=== PATIENT | female | born 1985 | race Hispanic/Latino ===

== ENCOUNTER 2022-04-14 02:25 | Emergency (ER) | payer OTHER ==
[~2022-04-14] VITALS: Ht 162.6 cm; Wt 145.1 kg
[2022-04-14 02:42] LABS: BASOPHILS % (AUTO) 0.5 % (0.0-5.0); EOSINOPHILS % (AUTO) 2.9 % (0.0-8.0); HEMATOCRIT 40.9 % (36-48); LYMPHOCYTES % (AUTO) 34.6 % (21.0-51.0); MEAN CORPUSCULAR HEMOGLOBIN 27.1 pg (27.0-33.0); MONOCYTES % (AUTO) 7.4 % (3.0-13.0); NEUTROPHILS % (AUTO) 54.3 % (40.0-77.0); PLATELET COUNT (AUTO) 309 K/uL (130-400); RED BLOOD CELL COUNT(AUTO) 4.99 MIL/uL (4.00-5.50); RED CELL DISTRIBUTION WIDTH 13.4 % (11.0-15.5)
[2022-04-14 02:59] LABS: ALBUMIN 3.3 g/dL (3.5-5.0); CREATININE 0.8 mg/dL (0.5-1.5); TOTAL PROTEIN, SERUM 7.1 g/dL (6.0-8.3)
[2022-04-14] MEDS ORDERED: KETOROLAC 15MG/ML VIAL (15MG/ML) IV ONE (03:00)
[2022-04-14 03:02] LABS: INR 0.94 (0.85-1.15); PROTHROMBIN TIME 10.3 SEC (9.6-11.6)
[2022-04-14 03:04] LABS: PARTIAL THROMBOPLASTIN TIME 30.8 SEC (26.3-35.5)
[2022-04-14 03:05] LABS: POTASSIUM 2.8 mmol/L (3.5-5.1)
[2022-04-14] MEDS ORDERED: IBUP-2077 PO (03:17)
[2022-04-14] MEDS ORDERED: POTA-79 PO (03:21)
[2022-04-14 03:26] LABS: APPEARANCE,URINE CLEAR (CLEAR); BILIRUBIN,URINE NEGATIVE (NEGATIVE); COLOR,URINE YELLOW (YELLOW); GLUCOSE, URINE (UA) NEGATIVE (NEGATIVE); KETONES,URINE NEGATIVE (NEGATIVE); LEUKOCYTE ESTERASE ,URINE NEGATIVE (NEGATIVE); NITRATE,URINE NEGATIVE (NEGATIVE); OCCULT BLOOD,URINE NEGATIVE (NEGATIVE); PH,URINE 6.5 (5.0-8.0); PROTEIN,URINE NEGATIVE (NEGATIVE); UROBILINOGEN,URINE 0.2 mg/dL (0.2-1.0)
[2022-04-14 03:30] LABS: HCG,QUALITATIVE URINE NEGATIVE (NEGATIVE)
[2022-04-14] MEDS ORDERED: POTASSIUM CHLORIDE 10% ELIXIR 20 MEQ/15 ML UDCUP PO ONE (03:30)
[2022-04-14 04:09] VITALS: BP 122/72
== END 2022-04-14 04:26 | disposition home or self-care (01) ==
LOC: EDH 02:25
DX: E87.6 Hypokalemia (principal); R07.89 Other chest pain; Z88.6 Allergy status to analgesic agent; Z79.1 Long term (current) use of non-steroidal anti-inflammatories (NSAID); Z79.899 Other long term (current) drug therapy
CPT/HCPCS: 99285; 96374; 71045; 82550; 84484 ×2; 80053; 85025; 85610; 85730; 81003; 81025; 36415; 93005; J1885

== ENCOUNTER 2022-04-16 09:09 | Emergency (ER) | payer OTHER ==
[~2022-04-16] VITALS: Ht 152.4 cm; Wt 117.9 kg
[~2022-04-16 09:09] MED LIST: IBUP-2077 PO; POTA-79 PO
[2022-04-16 09:33] LABS: BASOPHILS % (AUTO) 0.6 % (0.0-5.0); EOSINOPHILS % (AUTO) 2.1 % (0.0-8.0); HEMATOCRIT 41.5 % (36-48); LYMPHOCYTES % (AUTO) 30.3 % (21.0-51.0); MEAN CORPUSCULAR HEMOGLOBIN 26.5 pg (27.0-33.0); MEAN CORPUSCULAR HGB CONC 32.5 g/dL (32.0-36.0); MEAN CORPUSCULAR VOLUME 81.5 fL (79-99); MONOCYTES % (AUTO) 8.2 % (3.0-13.0); NEUTROPHILS % (AUTO) 58.4 % (40.0-77.0); PLATELET COUNT (AUTO) 335 K/uL (130-400); RED BLOOD CELL COUNT(AUTO) 5.09 MIL/uL (4.00-5.50); RED CELL DISTRIBUTION WIDTH 13.3 % (11.0-15.5); WHITE BLOOD COUNT (AUTO) 11.3 K/uL (4.8-10.8)
[2022-04-16 09:41] LABS: CREATININE 0.7 mg/dL (0.5-1.5); POTASSIUM 3.4 mmol/L (3.5-5.1)
[2022-04-16 09:46] LABS: ALBUMIN 3.7 g/dL (3.5-5.0); TOTAL PROTEIN, SERUM 7.4 g/dL (6.0-8.3)
[2022-04-16] MEDS ORDERED: ALPRAZOLAM 0.25 MG TABLET PO ONE (10:30)
[2022-04-16] MEDS ORDERED: MORPHINE 2 MG SYG IVP ONE (10:30)
[2022-04-16] MEDS ORDERED: ASPIRIN 81MG CHEW TAB PO ONE (12:30)
[2022-04-16] MEDS ORDERED: ASPI-1005 PO (13:34)
[2022-04-16 13:35] VITALS: BP 128/74
== END 2022-04-16 13:38 | disposition home or self-care (01) ==
LOC: EDH 09:09
DX: R07.89 Other chest pain (principal); R06.02 Shortness of breath; Z79.1 Long term (current) use of non-steroidal anti-inflammatories (NSAID); Z79.899 Other long term (current) drug therapy; Z88.6 Allergy status to analgesic agent
CPT/HCPCS: 36415; 71045; 80053; 81025; 84484; 85025; 85378; 93005; 96374

== ENCOUNTER 2022-06-18 16:09 | Emergency (ER) | payer OTHER ==
[~2022-06-18] VITALS: Ht 160 cm; Wt 114.8 kg
[~2022-06-18 16:09] MED LIST changes: +ASPI-1005 PO
[2022-06-18 16:40] VITALS: BP 113/84
[2022-06-18] MEDS ORDERED: PROMETHAZINE HCL 25 MG/ML 1ML AMPULE IM ONE (17:30)
[2022-06-18] MEDS ORDERED: CYCLOBENZAPRINE HCL 10 MG TABLET PO ONE (17:30)
== END 2022-06-18 17:44 | disposition home or self-care (01) ==
LOC: EDH 16:09
DX: R07.89 Other chest pain (principal); M79.10 Myalgia, unspecified site; G43.909 Migraine, unspecified, not intractable, without status migrainosus; E66.01 Morbid (severe) obesity due to excess calories; Z79.1 Long term (current) use of non-steroidal anti-inflammatories (NSAID); Z79.82 Long term (current) use of aspirin; Z88.6 Allergy status to analgesic agent; Z68.41 Body mass index [BMI] 40.0-44.9, adult
CPT/HCPCS: 99283; 96372; 93005; J2550

== ENCOUNTER 2022-10-04 20:09 | Emergency (ER) | payer OTHER ==
[~2022-10-04] VITALS: Ht 157.5 cm; Wt 121.6 kg
[2022-10-04 20:48] LABS: BASOPHILS % (AUTO) 0.5 % (0.0-5.0); EOSINOPHILS % (AUTO) 2.1 % (0.0-8.0); HEMATOCRIT 42.5 % (36-48); LYMPHOCYTES % (AUTO) 27.4 % (21.0-51.0); MEAN CORPUSCULAR VOLUME 84.3 fL (79-99); MONOCYTES % (AUTO) 9.4 % (3.0-13.0); NEUTROPHILS % (AUTO) 60.2 % (40.0-77.0); PLATELET COUNT (AUTO) 328 K/uL (130-400); RED BLOOD CELL COUNT(AUTO) 5.04 MIL/uL (4.00-5.50); RED CELL DISTRIBUTION WIDTH 13.2 % (11.0-15.5); WHITE BLOOD COUNT (AUTO) 11.3 K/uL (4.8-10.8)
[2022-10-04 20:57] LABS: CREATININE 0.9 mg/dL (0.5-1.5); POTASSIUM 3.4 mmol/L (3.5-5.1)
[2022-10-04 21:02] LABS: ALBUMIN 3.5 g/dL (3.5-5.0); TOTAL PROTEIN, SERUM 7.5 g/dL (6.0-8.3)
[2022-10-04 22:39] VITALS: BP 129/71
== END 2022-10-04 22:44 | disposition home or self-care (01) ==
LOC: EDH 20:09
DX: F41.9 Anxiety disorder, unspecified (principal); M47.812 Spondylosis without myelopathy or radiculopathy, cervical region; G43.909 Migraine, unspecified, not intractable, without status migrainosus; E66.01 Morbid (severe) obesity due to excess calories; Z20.822 Contact with and (suspected) exposure to COVID-19; Z68.42 Body mass index [BMI] 45.0-49.9, adult; Z79.899 Other long term (current) drug therapy; Z79.82 Long term (current) use of aspirin; Z88.6 Allergy status to analgesic agent
CPT/HCPCS: 99285; 70450; 71045; 87635; 84484; 80053; 84703; 85025; 87804 ×2; 36415; 70490; 93005; C9803

== ENCOUNTER 2022-12-22 22:35 | Emergency (ER) | payer OTHER ==
[~2022-12-22] VITALS: Ht 160 cm; Wt 113.4 kg
[~2022-12-22 22:35] MED LIST changes: +POTA-364 PO; -POTA-79 PO
[2022-12-22 23:03] LABS: BASOPHILS % (AUTO) 0.5 % (0.0-5.0); EOSINOPHILS % (AUTO) 1.7 % (0.0-8.0); HEMATOCRIT 38.3 % (36-48); LYMPHOCYTES % (AUTO) 30.9 % (21.0-51.0); MEAN CORPUSCULAR HEMOGLOBIN 27.4 pg (27.0-33.0); MEAN CORPUSCULAR HGB CONC 32.6 g/dL (32.0-36.0); MONOCYTES % (AUTO) 7.7 % (3.0-13.0); NEUTROPHILS % (AUTO) 58.8 % (40.0-77.0); PLATELET COUNT (AUTO) 304 K/uL (130-400); RED BLOOD CELL COUNT(AUTO) 4.56 MIL/uL (4.00-5.50); RED CELL DISTRIBUTION WIDTH 13.2 % (11.0-15.5); WHITE BLOOD COUNT (AUTO) 11.3 K/uL (4.8-10.8)
[2022-12-22 23:12] LABS: CREATININE 0.7 mg/dL (0.5-1.5); POTASSIUM 3.5 mmol/L (3.5-5.1)
[2022-12-22 23:17] LABS: ALBUMIN 3.3 g/dL (3.5-5.0); TOTAL PROTEIN, SERUM 6.8 g/dL (6.0-8.3)
[2022-12-22 23:30] LABS: APPEARANCE,URINE CLEAR (CLEAR); BILIRUBIN,URINE NEGATIVE (NEGATIVE); COLOR,URINE COLORLESS (YELLOW); GLUCOSE, URINE (UA) NEGATIVE (NEGATIVE); KETONES,URINE NEGATIVE (NEGATIVE); LEUKOCYTE ESTERASE ,URINE 75 Leu/uL (NEGATIVE); NITRATE,URINE NEGATIVE (NEGATIVE); OCCULT BLOOD,URINE NEGATIVE (NEGATIVE); PH,URINE 6.5 (5.0-8.0); PROTEIN,URINE NEGATIVE (NEGATIVE); UROBILINOGEN,URINE 0.2 mg/dL (0.2-1.0)
[2022-12-22 23:33] LABS: BACTERIA,URINE RARE /HPF (None Seen); HCG,QUALITATIVE URINE NEGATIVE (NEGATIVE); SQUAMOUS EPITHELIAL CELL,UR FEW /HPF (0-2)
[2022-12-22] MEDS ORDERED: ACETAMINOPHEN 500 MG TABLET ONE (23:54)
[2022-12-23] MEDS ORDERED: ACETAMINOPHEN 500 MG TABLET PO ONE
[2022-12-23] MEDS ORDERED: SOLU-MEDROL 125MG VIAL IVP ONE (00:30)
[2022-12-23] MEDS ORDERED: DiphenhydrAMINE HCL 50 MG/ML VIAL IV ONE (00:30)
[2022-12-23] MEDS ORDERED: METOCLOPRAMIDE 10 MG/2 ML VIAL IVP ONE (00:30)
[2022-12-23] MEDS ORDERED: 0.9%NACL 1000ML 1,000 ML IV ONE (00:30)
[2022-12-23] MEDS ORDERED: ONDA4TAB10 PO (03:39)
[2022-12-23 03:43] VITALS: BP 116/60
== END 2022-12-23 03:51 | disposition home or self-care (01) ==
LOC: EDH 22:35
DX: G43.909 Migraine, unspecified, not intractable, without status migrainosus (principal); G44.89 Other headache syndrome; E66.9 Obesity, unspecified; I10 Essential (primary) hypertension; Z79.82 Long term (current) use of aspirin; Z79.899 Other long term (current) drug therapy; Z88.6 Allergy status to analgesic agent
CPT/HCPCS: 99285; 84484; 80053; 85025; 87088; 81001; 81025; 36415; 93005; 96374; 70450; 96375; J1200; J2930; J2765

== ENCOUNTER 2023-04-03 17:38 | Emergency (ER) | payer OTHER ==
[~2023-04-03] VITALS: Ht 157.5 cm; Wt 121.6 kg
[~2023-04-03 17:38] MED LIST changes: +ONDA4TAB10 PO
[2023-04-03 18:47] LABS: RAPID GROUP A STREP negative (NEGATIVE)
[2023-04-03 18:52] LABS: SARS-CoV-2, RNA, NAAT POSITIVE SARS CoV-2 (NEGATIVE)
[2023-04-03 18:59] LABS: INFLUENZA TYPE A Negative For Type A (NEGATIVE); INFLUENZA TYPE B Negative For Type B (NEGATIVE)
[2023-04-03] MEDS ORDERED: NIRM1TAB5 PO (20:24)
[2023-04-03] MEDS ORDERED: KETOROLAC 30MG VIAL (30MG/ML) IM ONE (20:30)
[2023-04-03 21:04] VITALS: BP 122/54; PULSE 88; RESP 20; O2SAT 99
== END 2023-04-03 21:03 | disposition home or self-care (01) ==
LOC: EDH 17:38
DX: U07.1 COVID-19 (principal); R05.9 Cough, unspecified; R50.9 Fever, unspecified; I10 Essential (primary) hypertension; F17.200 Nicotine dependence, unspecified, uncomplicated; E66.01 Morbid (severe) obesity due to excess calories; Z20.822 Contact with and (suspected) exposure to COVID-19; Z68.42 Body mass index [BMI] 45.0-49.9, adult; Z79.82 Long term (current) use of aspirin; Z79.899 Other long term (current) drug therapy
CPT/HCPCS: 99284; 71045; 87635; 87880; 87804 ×2; 96372; C9803; J1885

== ENCOUNTER 2024-01-26 23:32 | Emergency (ER) | payer OTHER ==
[~2024-01-26] VITALS: Ht 160 cm; Wt 118.4 kg
[~2024-01-26 23:32] MED LIST changes: +NIRM1TAB5 PO; +ONDA-243 PO; -ONDA4TAB10 PO
[2024-01-27 00:01] LABS: RAPID GROUP A STREP negative (NEGATIVE)
[2024-01-27 00:05] LABS: BASOPHILS # (AUTO) 0.08 K/uL (0.00-0.20); BASOPHILS % (AUTO) 0.7 % (0.0-5.0); EOSINOPHILS # (AUTO) 0.25 K/uL (0.00-0.70); EOSINOPHILS % (AUTO) 2.2 % (0.0-8.0); HEMATOCRIT 42.8 % (36-48); IMMATURE GRANULOCYTE ABSOLUTE 0.04 K/uL (0-1); LYMPHOCYTES # (AUTO) 4.2 K/uL (1.0-4.8); LYMPHOCYTES % (AUTO) 36.2 % (21.0-51.0); MEAN CORPUSCULAR HEMOGLOBIN 26.6 pg (27.0-33.0); MEAN CORPUSCULAR HGB CONC 32.2 g/dL (32.0-36.0); MEAN CORPUSCULAR VOLUME 82.5 fL (79-99); MONOCYTES # (AUTO) 0.9 K/uL (0.1-1.0); MONOCYTES % (AUTO) 8.2 % (3.0-13.0); NEUTROPHILS % (AUTO) 52.4 % (40.0-77.0); PLATELET COUNT (AUTO) 348 K/uL (130-400); RED BLOOD CELL COUNT(AUTO) 5.19 MIL/uL (4.00-5.50); RED CELL DISTRIBUTION WIDTH 13.4 % (11.0-15.5); WHITE BLOOD COUNT (AUTO) 11.5 K/uL (4.8-10.8)
[2024-01-27 00:06] LABS: SARS-CoV-2, RNA, NAAT NEGATIVE SARS CoV-2 (NEGATIVE)
[2024-01-27 00:11] LABS: INFLUENZA TYPE A Negative For Type A (NEGATIVE); INFLUENZA TYPE B Negative For Type B (NEGATIVE)
[2024-01-27 00:22] LABS: ALBUMIN 3.4 g/dL (3.5-5.0); BILIRUBIN,TOTAL 0.4 mg/dL (0.2-1.0); CREATININE 0.8 mg/dL (0.5-1.0); POTASSIUM 3.4 mmol/L (3.5-5.1); TOTAL PROTEIN, SERUM 7.4 g/dL (6.0-8.3)
[2024-01-27] MEDS: ONDANSETRON 4MG INJ IVP ONE (00:24)
[2024-01-27] MEDS: 0.9%NACL 1000ML 1,000 ML IV ONE (00:24)
[2024-01-27 01:29] LABS: APPEARANCE,URINE CLEAR (CLEAR); BILIRUBIN,URINE NEGATIVE (NEGATIVE); COLOR,URINE LIGHT-YELLOW (YELLOW); GLUCOSE, URINE (UA) NEGATIVE (NEGATIVE); KETONES,URINE NEGATIVE (NEGATIVE); LEUKOCYTE ESTERASE ,URINE 250 Leu/uL (NEGATIVE); NITRATE,URINE NEGATIVE (NEGATIVE); OCCULT BLOOD,URINE NEGATIVE (NEGATIVE); PROTEIN,URINE NEGATIVE (NEGATIVE); UROBILINOGEN,URINE 0.2 mg/dL (0.2-1.0)
[2024-01-27 01:32] LABS: ADD UA MICROSCOPIC YES
[2024-01-27 01:50] LABS: BACTERIA,URINE RARE /HPF (None Seen); MUCUS,URINE RARE LPF (None Seen); SQUAMOUS EPITHELIAL CELL,UR FEW /HPF (0-2)
[2024-01-27] MEDS ORDERED: NITR100C4 PO (01:57)
[2024-01-27 01:58] VITALS: BP 145/71; PULSE 73; RESP 16; O2SAT 97
[2024-01-27 02:22] LABS: HCG,QUALITATIVE URINE NEGATIVE (NEGATIVE)
== END 2024-01-27 02:20 | disposition home or self-care (01) ==
LOC: EDH 23:32
DX: F41.9 Anxiety disorder, unspecified (principal); R03.0 Elevated blood-pressure reading, without diagnosis of hypertension; N30.00 Acute cystitis without hematuria; R10.30 Lower abdominal pain, unspecified; E87.6 Hypokalemia; E66.9 Obesity, unspecified; F17.200 Nicotine dependence, unspecified, uncomplicated; Z79.82 Long term (current) use of aspirin; Z79.899 Other long term (current) drug therapy; Z88.6 Allergy status to analgesic agent; Z68.42 Body mass index [BMI] 45.0-49.9, adult; Z20.822 Contact with and (suspected) exposure to COVID-19
CPT/HCPCS: 99284; 87635; 80053; 83690; 85025; 87088; 87880; 87804 ×2; 81001; 81025; 36415; 96374; 96361; J7030; J2405

== ENCOUNTER 2025-03-23 17:50 | Emergency (ER) | payer SELFPAY ==
[~2025-03-23] VITALS: Ht 160 cm; Wt 123.4 kg
[~2025-03-23 17:50] MED LIST changes: +NITR100C4 PO
--- NOTE | 2025-03-23 18:08 | EKG ---
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
[2025-03-23 18:28] LABS: IMMATURE GRANULOCYTE ABSOLUTE 0.06 K/uL (0-1); NUCLEATED RED BLOOD CELLS 0.0 % (0.0-0.19); PLATELET COUNT (AUTO) 224 K/uL (130-400); RED BLOOD CELL COUNT(AUTO) 5.17 MIL/uL (4.00-5.50); RED CELL DISTRIBUTION WIDTH 13.4 % (11.0-15.5); WHITE BLOOD COUNT (AUTO) 10.5 K/uL (4.8-10.8)
[2025-03-23 18:31] LABS: CREATININE 0.6 mg/dL (0.5-1.0); GLOMERULAR FILTR. RATE CALC 116.0 mL/min (>90); GLUCOSE,RANDOM 121.0 mg/dL (70-105); SODIUM SERUM 138.0 mmol/L (136-145); UREA NITROGEN, BLOOD 10.0 mg/dL (7-18)
[2025-03-23 18:40] LABS: CREATINE KINASE, TOTAL 83.0 U/L (21-232)
[2025-03-23 18:58] LABS: ADD UA MICROSCOPIC YES; APPEARANCE,URINE CLOUDY (CLEAR); GLUCOSE, URINE (UA) NEGATIVE (NEGATIVE); LEUKOCYTE ESTERASE ,URINE 500 Leu/uL (NEGATIVE); NITRATE,URINE NEGATIVE (NEGATIVE); OCCULT BLOOD,URINE +- (TRACE) (NEGATIVE)
[2025-03-23 19:01] LABS: HCG,QUALITATIVE URINE NEGATIVE (NEGATIVE)
[2025-03-23 19:07] LABS: SQUAMOUS EPITHELIAL CELL,UR MOD /HPF (0-2); UNCLASSIFIED CRYSTAL 3 /HPF (None Seen)
--- NOTE | 2025-03-23 19:49 | HMCIMG ---
EXAM: Chest radiograph 1 view HISTORY: Syncope COMPARISON: 04/03/2023 FINDINGS: No pulmonary consolidations. No pleural effusion or pneumothorax. Normal cardiomediastinal silhouette and pulmonary vasculature. No suspicious osseous lesions. IMPRESSION: No acute cardiopulmonary disease. /[place]
--- NOTE | 2025-03-23 19:54 | ERN ---
General Chief Complaint: Syncope Stated Complaint: SYNCOPE, LEFT FACIAL SWELLING Time Seen by MD: 19:08 History of Present Illness Initial Comments 40-year-old female who feels weak and fell earlier today. She is complaining of left-sided face pain weakness and also a headache. In addition she says she is having trouble breathing like maybe she has a cold or a cough. Allergies: Coded Allergies: ibuprofen (Unverified Allergy, Unknown, 04/14/22) Home Meds Active Scripts Nitrofurantoin Monohyd/M-Cryst (Macrobid 100 mg Capsule) 100 Mg Capsule, 100 MG PO twice daily for 7 Days, #14 CAP Prov:GET SPANN MD 01/27/24 Nirmatrelvir/Ritonavir (Paxlovid 150-100 mg Pack (Eua)) 1 Each Tablet, 1 EACH PO BID for 5 Days, #10 TAB 0 Refills Prov:MARYSOL MCKAY NP 04/03/23 Ondansetron (Ondansetron Odt) 4 Mg Tab.rapdis, 4 MG PO TID PRN for NAUSEA, #30 TAB 0 Refills Prov:OMAR SIDDIQI MD 12/23/22 Aspirin (ASPIRIN 81MG CHEW TAB) 81 Mg Tab.chew, 81 MG PO DAILY, #30 TAB.CHEW 0 Refills Prov:FATOU DE LA TORRE MD 04/16/22 Potassium Chloride (Potassium Chloride) 20 Meq Tablet.er, 20 MEQ PO DAILY for 7 Days, #7 TAB 0 Refills Prov:FATOU DE LA TORRE MD 04/14/22 Ibuprofen (Ibuprofen 800 mg Tab) 800 Mg Tab, 800 MG PO Q8H, #30 TAB 0 Refills Prov:FATOU DE LA TORRE MD 04/14/22 Past Medical History Past Medical History: Ovarian Cyst, Other Medical History Other: PCOS Past Surgical History: None Family History Family History: Negative Social History Social History: Smokers, Negative Female( History) LMP: Mar 06, 2025 : 0 Para: 0 Aborts: 0 Constitutional: (-) chills, (-) diaphoresis, (-) fever, (-) malaise, (-) weakness, (-) other documentation EENTM: (-) eye pain, (-) blurred vision, (-) tearing, (-) double vision, (-) ear pain, (-) ear discharge, (-) nose pain, (-) nose congestion, (-) throat pain, (-) Throat swelling, (-) mouth pain, (-) tooth pain, (-) mouth swelling, (-) other documentation Respiratory: (+) cough, (+) short of breath, (+) stridor Cardiovascular: (-) chest pain, (-) edema, (-) palpitations, (-) syncope, (-) dyspnea on exertion, (-) other documentation Gastrointestinal/Abdominal: (-) nausea, (-) vomiting, (-) diarrhea, (-) abdominal pain, (-) abdominal distention, (-) constipation, (-) rectal bleeding, (-) dark stool/melena, (-) other documentation Genitourinary: (-) vaginal discharge, (-) vaginal bleeding, (-) dysuria, (-) frequency, (-) hematuria, (-) pain, (-) other documentation Musculoskeletal: (-) Neck pain, (-) back pain, (-) Flank Pain, (-) joint pain, (-) joint swelling, (-) muscle pain, (-) muscle stiffness, (-) gout, (-) other documentation Neuro: (+) headache Physical Exam General Appearance: (+) mild distress Orientation: (+) alert, (+) oriented x 3 Head/Face Trauma: No Eye: bilateral eye normal inspection, bilateral eye PERRL, bilateral eye EOMI Ear, Nose, Throat: (+) hearing grossly normal, (+) normal ENT inspection, (+) moist mucous membraine Neck: (+) normal inspection, (+) supple, (+) full range of motion Respiratory: (+) chest non-tender, (+) lungs clear, (+) well ventilated Heart: (+) regular, (+) no gallop Vascular: (+) no edema, (+) normal peripheral pulse Gastrointestinal: (+) soft, (+) non-tender Gastrointestinal Comment Obese Results Laboratory and Microbiology Lab and Micro Result Laboratory Tests Test 03/23/25 18:16 03/23/25 18:46 03/23/25 21:28 White Blood Count 10.5 K/uL (4.8-10.8) Red Blood Count 5.17 MIL/uL (4.00-5.50) Hemoglobin 14.2 g/dL (12.0-16.0) Hematocrit 43.1 % (36-48) Mean Corpuscular Volume 83.4 fL (79-99) Mean Corpuscular Hemoglobin 27.5 pg (27.0-33.0) Mean Corpuscular Hemoglobin Concent 32.9 g/dL (32.0-36.0) Red Cell Distribution Width 13.4 % (11.0-15.5) Platelet Count 224 K/uL (130-400) Mean Platelet Volume 10.9 fL (7.5-10.5) H Immature Granulocyte % (Auto) 0.6 % (0-1) Neutrophils (%) (Auto) 66.0 % (40.0-77.0) Lymphocytes (%) (Auto) 24.2 % (21.0-51.0) Monocytes (%) (Auto) 6.9 % (3.0-13.0) Eosinophils (%) (Auto) 1.8 % (0.0-8.0) Basophils (%) (Auto) 0.5 % (0.0-5.0) Neutrophils # (Auto) 6.9 K/uL (1.8-7.7) Lymphocytes # (Auto) 2.5 K/uL (1.0-4.8) Monocytes # (Auto) 0.7 K/uL (0.1-1.0) Eosinophils # (Auto) 0.19 K/uL (0.00-0.70) Basophils # (Auto) 0.05 K/uL (0.00-0.20) Absolute Immature Granulocyte (auto 0.06 K/uL (0-1) Nucleated Red Blood Cells 0.0 % (0.0-0.19) Sodium Level 138 mmol/L (136-145) Potassium Level 3.7 mmol/L (3.5-5.1) Chloride Level 103 mmol/L (101-111) Carbon Dioxide Level 29 mmol/L (21-32) Blood Urea Nitrogen 10 mg/dL (7-18) Creatinine 0.6 mg/dL (0.5-1.0) Glomerular Filtration Rate Calc 116 mL/min (>90) Random Glucose 121 mg/dL (70-105) H Total Calcium 8.7 mg/dL (8.5-10.1) Magnesium Level 2.10 mg/dL (1.80-2.40) Total Creatine Kinase 83 U/L (21-232) # Troponin I High Sensitivity 6 ng/L (4-50) Urine Color YELLOW (YELLOW) Urine Appearance CLOUDY (CLEAR) H Urine pH 6.0 (5.0-8.0) Urine Specific [place] 1.019 (1.001-1.031) Urine Protein 10 mg/dL (NEGATIVE) H Urine Glucose (UA) NEGATIVE mg/dL (NEGATIVE) Urine Ketones NEGATIVE mg/dL (NEGATIVE) Urine Occult Blood +- (TRACE) (NEGATIVE) H Urine Nitrate NEGATIVE (NEGATIVE) Urine Bilirubin NEGATIVE mg/dL (NEGATIVE) Urine Urobilinogen 0.2 mg/dL (0.2-1.0) Urine Leukocyte Esterase 500 Kathy/uL (NEGATIVE) H Urine RBC 26-50 /HPF (0-1) H Urine WBC 51-100 /HPF (0-1) H Urine Squamous Epithelial Cells MOD /HPF (0-2) Urine Other Crystals (Auto) 3 /HPF (None Seen) Urine Bacteria FEW /HPF (None Seen) Urine HCG, Qualitative NEGATIVE (NEGATIVE) Influenza Type A Antigen Negative For Type A Influenza Type B Antigen Negative For Type B SARS-CoV-2 Antigen (Rapid) PRESUMPTIVE NEGATIVE Group A Streptococcus Rapid negative (NEGATIVE) MDM MDM: Differential diagnosis: Upper respiratory tract infection, UTI, dehydration. Rationale: Tests considered and ordered secondary to shared decision making include: Previous outside records reviewed: Old ER visits. Risk of complication and/or morbidity or mortality of patient management: None Medications-Per medication reconciliation Need for hospitalization: Patient does meet criteria for hospitalization. Need for emergency major/minor surgery: No There are no social concerns with this patient. Prescription drug management Prescriptions will include symptomatic care Patient's prior external medical records from other ER visits were reviewed by me as indicated. Prior testing and results from previous visits were reviewed. Prior tests were taken into account with medical decision making and resource utilization, independent historian/historians were used to obtain complete medical history. I independently interpreted the test that were performed, results were reviewed by me and considered findings on radiology if ordered. Patient's head CT is negative patient's chest x-ray is negative. Laboratory studies show a urinary tract infection. Swabs still pending. Patient was given some fluids as well as some dexamethasone. Nasal swabs were all negative. Gave patient some muscle relaxants and some pain medications and she is ready for discharge. ED Course Orders Procedure Category Date Status Time Cbc With Differential LAB 03/23/25 Complete 17:56 Chest 1vw RAD 03/23/25 Resulted 17:56 12 Lead Ekg Tracing- EKG 03/23/25 Resulted Technical 17:56 Magnesium LAB 03/23/25 Complete 17:56 ,Urine Test LAB 03/23/25 Complete 17:56 Creatine Kinase, Total LAB 03/23/25 Complete 17:56 Troponin I High LAB 03/23/25 Complete Sensitivity 17:56 Urinalysis Profile LAB 03/23/25 Complete 17:56 Basic Metabolic Panel LAB 03/23/25 Complete 17:56 Ct Head/Brain W/O CT 03/23/25 Resulted Contrast 17:56 Culture Urine MATT 03/23/25 In Process 18:58 Covid19 (Sars Antigen LAB 03/23/25 Complete Rapid) 19:54 Influenza Type A & B, LAB 03/23/25 Complete Rapid 19:54 Rapid (Group A Strep) LAB 03/23/25 Complete 19:54 Lactated Ringers PHA 03/23/25 In Process 1000ml (Lactated 19:54 Orphenadrine Citrate PHA 03/23/25 In Process (Norflex) 20:00 Dexamethasone 4 Mg PHA 03/23/25 In Process Tab (Decadron 4 Mg Ta 20:00 Cefazolin Sodium 1 Gm PHA 03/23/25 Complete Vial (Ancef 1 Gm V 21:07 Current Medications Medications (Trade) Dose Ordered Sig/Josué Route PRN Reason Start Time Stop Time Status Last Admin Dose Admin Cefazolin Sodium (ANCEF 1 gm vial) 1 gm ONCE STAT IVP 03/23/25 21:07 03/23/25 21:08 DC Dexamethasone (DeCADron 4 mg TAB) 4 mg ONCE PO 03/23/25 20:00 03/23/25 23:59 Lactated Ringer's (Lactated Ringers 1000ml) 1,000 ml BOLUS IV 03/23/25 19:54 03/24/25 19:53 Orphenadrine Citrate (Norflex) 60 mg ONCE IM 03/23/25 20:00 03/23/25 23:59 Vital Signs Date Time Temp Pulse Resp B/P (MAP) Pulse Ox O2 Delivery O2 Flow Rate FiO2 03/23/25 17:52 97.7 84 16 127/80 96 Room Air 0 DX & DISP Disposition: Discharge Departure Impression: Primary Impression: Acute cystitis Additional Impressions: Obesity, Dehydration, Urinary tract infection Condition: Stable Scripts Nitrofurantoin Macrocrystal (Nitrofurantoin) 100 Mg Capsule 1 CAP PO BID for 7 Days, #14 CAP 0 Refills Prov: HÉCTOR MORRIS MD 03/23/25 Additional Instructions: You fell most likely from dehydration and weakness. You do have a urinary tract infection which is contributing to that. The head CT was negative for any injuries. Your chest x-ray is negative for pneumonia. I have given you some fluid as well as some muscle relaxants to help with your muscular aches and pains. And given you dexamethasone to help with your breathing. You do not have COVID or strep or influenza. You do have a urinary tract infection I have given you some antibiotics here in the emergency room and sent a prescription for a week's worth of antibiotics at your pharmacy. Please follow-up with your primary care provider if these symptoms do not linda in the next few days. In his hot whether it is important to drink enough fluid to stay well hydrated. Drink enough fluids so that your urine runs clear at least once a day. Referrals: DAVID ROBLEDO (PCP) HÉCTOR MORRIS MD Mar 23, 2025 19:54
--- NOTE | 2025-03-23 20:21 | HMCIMG ---
EXAM: CT Head Without IV contrast. CLINICAL HISTORY: Syncope and headache. TECHNIQUE: Axial computed tomography images of the head/brain without intravenous contrast. COMPARISON: CT dated December 23, 2022. FINDINGS: BRAIN: No evidence of acute hemorrhage. No mass lesion. No CT evidence for acute territorial infarct. No midline shift or extra-axial collections. VENTRICLES: No hydrocephalus. ORBITS: The orbits are unremarkable. SINUSES AND MASTOIDS: Mild mucosal thickening in the left mastoid air cells, likely mastoiditis. The paranasal sinuses and right mastoid air cells are clear. BONES: No fracture. SOFT TISSUES: Unremarkable. IMPRESSION: No acute intracranial abnormality. /[place]ina
[2025-03-23 21:43] LABS: RAPID GROUP A STREP negative (NEGATIVE)
[2025-03-23 21:53] LABS: COVID19 (SARS ANTIGEN RAPID) PRESUMPTIVE NEGATIVE (NEGATIVE); INFLUENZA TYPE A Negative For Type A (NEGATIVE); INFLUENZA TYPE B Negative For Type B (NEGATIVE)
[2025-03-23] MEDS ORDERED: NITR100C PO (23:44)
[2025-03-23] MEDS: LACTATED RINGERS 1000ML IV SCH (23:51)
[2025-03-23] MEDS: ORPHENADRINE 60MG/2ML IM SCH (23:52)
[2025-03-24 01:09] VITALS: BP 145/87; PULSE 80; RESP 18; TEMP 98.3; O2SAT 100
== END 2025-03-24 01:11 | disposition home or self-care (01) ==
LOC: EDH 17:50
DX: N30.00 Acute cystitis without hematuria (principal); E66.9 Obesity, unspecified; E86.0 Dehydration; F17.200 Nicotine dependence, unspecified, uncomplicated; Z79.82 Long term (current) use of aspirin; Z79.899 Other long term (current) drug therapy; Z88.6 Allergy status to analgesic agent; Z20.822 Contact with and (suspected) exposure to COVID-19
CPT/HCPCS: 99285; 96374; 70450; 71045; 96361; 87426; 82550; 83735; 84484; 80048; 85025; 87086; 87880; 87804 ×2; 81001; 81025; 36415; 93005; 96372; J7120; J0690; J8540; 87186; J2360

== ENCOUNTER 2025-05-14 02:07 | Emergency (ER) | payer SELFPAY ==
[~2025-05-14] VITALS: Ht 157.5 cm; Wt 127.5 kg
[~2025-05-14 02:07] MED LIST changes: +NITR100C PO
--- NOTE | 2025-05-14 02:50 | ERN ---
ED Note History of Present Illness Stated Complaint: C/O PAIN TO RT ARM W/PAIN TO RT SIDE OF NECK Chief Complaint: Neck Pain Time Seen by MD: 02:45 Time Seen by Midlevel: 02:45 Dictation: The patient is a 40-year-old female with no past medical history who presents to the emergency department with complaints of right side neck pain onset two days ago. Patient reports her pain is worse with movement. Reports she can not turn her head to her left side. Patient denies any trauma. Allergies: Coded Allergies: ibuprofen (Unverified Allergy, Unknown, 04/14/22) Home Meds Active Scripts Nitrofurantoin Macrocrystal (Nitrofurantoin) 100 Mg Capsule, 1 CAP PO BID for 7 Days, #14 CAP 0 Refills Prov:HÉCTOR MORRIS MD 03/23/25 Nitrofurantoin Monohyd/M-Cryst (Macrobid 100 mg Capsule) 100 Mg Capsule, 100 MG PO twice daily for 7 Days, #14 CAP Prov:GET SPANN MD 01/27/24 Nirmatrelvir/Ritonavir (Paxlovid 150-100 mg Pack (Eua)) 1 Each Tablet, 1 EACH PO BID for 5 Days, #10 TAB 0 Refills Prov:MARYSOL MCKAY NP 04/03/23 Ondansetron (Ondansetron Odt) 4 Mg Tab.rapdis, 4 MG PO TID PRN for NAUSEA, #30 TAB 0 Refills Prov:OMAR SIDDIQI MD 12/23/22 Aspirin (ASPIRIN 81MG CHEW TAB) 81 Mg Tab.chew, 81 MG PO DAILY, #30 TAB.CHEW 0 Refills Prov:FATOU DE LA TORRE MD 04/16/22 Potassium Chloride (Potassium Chloride) 20 Meq Tablet.er, 20 MEQ PO DAILY for 7 Days, #7 TAB 0 Refills Prov:FATOU DE LA TORRE MD 04/14/22 Ibuprofen (Ibuprofen 800 mg Tab) 800 Mg Tab, 800 MG PO Q8H, #30 TAB 0 Refills Prov:FATOU DE LA TORRE MD 04/14/22 Past Medical History Past Medical History: Hypertension, Other Additional Past Medical Hx: HX OF PCOS Surgical History: None Family History: Negative Social History: Smokers, Negative LMP: May 08, 2025 : 0 Para: 0 Aborts: 0 RN Note Reviewed/Agreed w/PFSH: Yes Review of System Dictation Constitutional: Negative for fever,chills, and weight loss Eyes: Negative for injury, pain,redness, and discharge ENT: Negative for injury,pain or swelling Cardiovascular: Negative for chest pain, palpitations, and edema Respiratory: Negative for shortness of breath, cough, and wheezing, Abdomen/GI: Negative for abdominal pain, nausea, vomiting, diarrhea, and constipation Back: Negative for injury and pain : Negative for injury, bleeding and discharge MS/Extremity: Negative for injury and deformity positive for neck pain Skin: Negative for discoloration positive for rash Neuro: Negative for headache, weakness, numbness, tingling, and seizure Psych: Negative for suicide ideation, homicidal ideation, and hallucinations Initial Vital Sign VS Vital Signs Date Time Temp Pulse Resp B/P (MAP) Pulse Ox O2 Delivery O2 Flow Rate FiO2 05/14/25 02:10 99.1 82 20 127/80 96 Room Air 05/14/25 03:46 0 21 Physical Exam Dictation Vital Signs reviewed General Appearance: Alert, oriented x 3, no acute distress, well developed, nourished. Head and Face: non-traumatic. Eyes: PERRL, pink conjunctivas, eyelid no trauma, anterior chamber with arcus senilis. Ears: Pinnas intact and no signs of trauma or erythema ear canals clear and no d ischarge TM no erythema Nose: No discharge, no bleeding. Oropharynx: Mouth normal, tongue pink. pharynx clear,no erythema, tonsils no exudates, no abscesses noted, mucous membrane moist Neck: Supple, non-tender, no thyromegaly, no masses, no JVD, no bruits Breast:Deferred Chest:No tenderness, no crepitus, no paradoxical movement, no retractions Lungs:Clear, well-ventilated, symmetric, no rales, no wheezing, no rhonchi, no stridor, good breath sounds bilaterally Heart: Regular rate, regular rhythm, no murmur, no gallops Vascular: no peripheral edema, Abdomen: Soft, positive bowel sounds, nondistended, no guarding, nontender, no rebound, no masses no hepatomegaly, no splenomegaly, no Tellez's sign, no hernias. Rectal: Deferred Genital: Deferred Neurological: Normal speech, motor function intact, sensory function intact Musculoskeletal: Neck nontender, full range of motion, back nontender, full range of motion, Extremities: nontender, full range of motion , no cervical tenderness, limited range of motion to neck. No masses or wounds Skin: Color pink, dry, no turgor, , no lacerations, no abrasions, no contusions. Erythemic area to abdomen, no drainage Lymphatic: Deferred Results (Laboratory/Radiology) Laboratory/Radiology Laboratory Tests Test 05/14/25 05:38 White Blood Count 13.0 K/uL (4.8-10.8) H Red Blood Count 5.25 MIL/uL (4.00-5.50) Hemoglobin 14.3 g/dL (12.0-16.0) Hematocrit 44.2 % (36-48) Mean Corpuscular Volume 84.2 fL (79-99) Mean Corpuscular Hemoglobin 27.2 pg (27.0-33.0) Mean Corpuscular Hemoglobin Concent 32.4 g/dL (32.0-36.0) Red Cell Distribution Width 13.5 % (11.0-15.5) Platelet Count 325 K/uL (130-400) Mean Platelet Volume 10.4 fL (7.5-10.5) Immature Granulocyte % (Auto) 0.3 % (0-1) Neutrophils (%) (Auto) 52.7 % (40.0-77.0) Lymphocytes (%) (Auto) 37.3 % (21.0-51.0) Monocytes (%) (Auto) 7.1 % (3.0-13.0) Eosinophils (%) (Auto) 2.2 % (0.0-8.0) Basophils (%) (Auto) 0.4 % (0.0-5.0) Neutrophils # (Auto) 6.9 K/uL (1.8-7.7) Lymphocytes # (Auto) 4.8 K/uL (1.0-4.8) Monocytes # (Auto) 0.9 K/uL (0.1-1.0) Eosinophils # (Auto) 0.28 K/uL (0.00-0.70) Basophils # (Auto) 0.05 K/uL (0.00-0.20) Absolute Immature Granulocyte (auto 0.04 K/uL (0-1) Nucleated Red Blood Cells 0.0 % (0.0-0.19) Urine Color LIGHT-YELLOW (YELLOW) Urine Appearance CLOUDY (CLEAR) H Urine pH 6.0 (5.0-8.0) Urine Specific [place] 1.019 (1.001-1.031) Urine Protein NEGATIVE mg/dL (NEGATIVE) Urine Glucose (UA) NEGATIVE mg/dL (NEGATIVE) Urine Ketones NEGATIVE mg/dL (NEGATIVE) Urine Occult Blood NEGATIVE (NEGATIVE) Urine Nitrate NEGATIVE (NEGATIVE) Urine Bilirubin NEGATIVE mg/dL (NEGATIVE) Urine Urobilinogen 0.2 mg/dL (0.2-1.0) Urine Leukocyte Esterase 500 Kathy/uL (NEGATIVE) H Urine RBC 2-5 /HPF (0-1) H Urine WBC 51-100 /HPF (0-1) H Urine Squamous Epithelial Cells MANY /HPF (0-2) Urine Bacteria RARE /HPF (None Seen) Urine HCG, Qualitative NEGATIVE (NEGATIVE) Sodium Level 138 mmol/L (136-145) Potassium Level 3.6 mmol/L (3.5-5.1) Chloride Level 103 mmol/L (101-111) Carbon Dioxide Level 25 mmol/L (21-32) Blood Urea Nitrogen 11 mg/dL (7-18) Creatinine 0.6 mg/dL (0.5-1.0) Glomerular Filtration Rate Calc 116 mL/min (>90) Random Glucose 102 mg/dL (70-105) Total Calcium 8.5 mg/dL (8.5-10.1) Labs Reviewed?: Yes ED Course ED Course Orders Procedure Category Date Status Time Orphenadrine Citrate PHA 05/14/25 Complete (Norflex) 03:00 ,Urine Test LAB 05/14/25 Complete 02:50 Urinalysis Profile LAB 05/14/25 Complete 03:15 Ketorolac 60mg/2ml PHA 05/14/25 Complete (Toradol 60mg/2ml) 03:30 Triamcinolone Acet PHA 05/14/25 Complete 40mg/Ml 1ml (Kenalog 03:30 Lactated Ringers PHA 05/14/25 Complete 1000ml (Lactated 03:15 Basic Metabolic Panel LAB 05/14/25 Complete 04:21 Cbc With Differential LAB 05/14/25 Complete 04:21 Culture Urine MATT 05/14/25 In Process 06:05 Current Medications Medications (Trade) Dose Ordered Sig/Josué Route PRN Reason Start Time Stop Time Status Last Admin Dose Admin Ketorolac Tromethamine (toRADol 60MG/ 2ML) 60 mg ONCE ONCE IM 05/14/25 03:30 05/14/25 03:31 DC 05/14/25 04:00 Lactated Ringer's (Lactated Ringers 1000ml) 1,000 ml BOLUS STAT IV 05/14/25 03:15 05/14/25 03:18 DC 05/14/25 04:16 Orphenadrine Citrate (Norflex) 60 mg ONCE ONCE IM 05/14/25 03:00 05/14/25 03:01 DC 05/14/25 03:59 Triamcinolone Acetonide (Kenalog 40) 40 mg ONCE ONCE IM 05/14/25 03:30 05/14/25 03:31 DC 05/14/25 03:59 Vital Signs Date Time Temp Pulse Resp B/P (MAP) Pulse Ox O2 Delivery O2 Flow Rate FiO2 05/14/25 05:50 72 17 154/83 97 Room Air* 0 21 05/14/25 04:45 75 15 137/72 97 Room Air* 0 21 05/14/25 03:46 99.1 71 17 142/78 97 Room Air* 0 21 05/14/25 02:10 99.1 82 20 127/80 96 Room Air Medical Decision Making MDM The patient is a 40-year-old female with no past medical history who presents to the emergency department with complaints of right side neck pain onset two days ago. Patient reports her pain is worse with movement. Reports she can not turn her head to her left side. Patient denies any trauma. Patient also reports an itchy rash to abdomen. Denies any fevers Differential diagnosis: Cervical strain, muscle spasm, cellulitis Need for hospitalization: Patient does not meet criteria for hospitalization. There are no social concerns with this patient. Patient was given muscle relaxants anti-inflammatories and pain medication. She was bolused a L of fluid. She states that she feels better. Laboratory analysis shows a UTI. I will discharge her with nitrofurantoin. DX & DISP Disposition: Discharge Departure Impression: Primary Impression: Urinary tract infection Additional Impression: Dehydration Condition: Stable Scripts Nitrofurantoin Macrocrystal (Nitrofurantoin) 100 Mg Capsule 1 CAP PO BID for 10 Days, #20 CAP 0 Refills Prov: HÉCTOR MORRIS MD 05/14/25 Additional Instructions: You came in with symptoms that were what I would expect if someone is dehydrated and I treated you with muscle relaxants pain control and IV fluids. Your symptoms improved. Laboratory analysis showed possible UTI and I have sent a prescription to your pharmacy. Please follow-up with your physician to make sure that your urine has been cleared of this infection after you complete your course of antibiotics. Your urine cultures from March showed an Enterococcus that is sensitive to the antibiotic that I have prescribed. Drink plenty of fluids in his hot weather. Drink enough so that your urine runs clear at least once a day. Referrals: DAVID ROBLEDO (PCP) ALBERT LOGAN May 14, 2025 02:50 HÉCTOR MORRIS MD May 14, 2025 06:52
[2025-05-14] MEDS: ORPHENADRINE 60MG/2ML IM ONE (03:59)
[2025-05-14] MEDS: TRIAMCINOLONE ACETONIDE 40 MG/ML 1ML VIAL IM ONE (03:59)
[2025-05-14] MEDS: LACTATED RINGERS 1000ML IV STA (04:16)
[2025-05-14 05:53] LABS: IMMATURE GRANULOCYTE ABSOLUTE 0.04 K/uL (0-1); NUCLEATED RED BLOOD CELLS 0.0 % (0.0-0.19); PLATELET COUNT (AUTO) 325 K/uL (130-400); RED BLOOD CELL COUNT(AUTO) 5.25 MIL/uL (4.00-5.50); RED CELL DISTRIBUTION WIDTH 13.5 % (11.0-15.5); WHITE BLOOD COUNT (AUTO) 13.0 K/uL (4.8-10.8)
[2025-05-14 06:04] LABS: APPEARANCE,URINE CLOUDY (CLEAR); CREATININE 0.6 mg/dL (0.5-1.0); GLOMERULAR FILTR. RATE CALC 116.0 mL/min (>90); GLUCOSE, URINE (UA) NEGATIVE (NEGATIVE); GLUCOSE,RANDOM 102.0 mg/dL (70-105); LEUKOCYTE ESTERASE ,URINE 500 Leu/uL (NEGATIVE); NITRATE,URINE NEGATIVE (NEGATIVE); OCCULT BLOOD,URINE NEGATIVE (NEGATIVE); SODIUM SERUM 138.0 mmol/L (136-145); UREA NITROGEN, BLOOD 11.0 mg/dL (7-18)
[2025-05-14 06:05] LABS: ADD UA MICROSCOPIC YES
[2025-05-14 06:08] LABS: SQUAMOUS EPITHELIAL CELL,UR MANY /HPF (0-2)
[2025-05-14] MEDS ORDERED: CEPH500B PO (06:48)
[2025-05-14 07:12] VITALS: BP 117/72; PULSE 75; RESP 16; TEMP 98.9; O2SAT 97
--- NOTE | 2025-05-14 09:24 | NUR ---
PT CHART ACCESSED BUT NO CHANGES WERE MADE UPON CALL FROM [facility] PER DR BAKER
== END 2025-05-14 07:17 | disposition home or self-care (01) ==
LOC: EDH 02:07
DX: N39.0 Urinary tract infection, site not specified (principal); E86.0 Dehydration; E28.2 Polycystic ovarian syndrome; F17.200 Nicotine dependence, unspecified, uncomplicated; I10 Essential (primary) hypertension; Z79.82 Long term (current) use of aspirin; Z79.899 Other long term (current) drug therapy; Z88.6 Allergy status to analgesic agent
CPT/HCPCS: 99285; 80048; 85025; 87086; 81001; 81025; 36415; 96372 ×3; J1885; J7120; J3301; J2360